=== PATIENT | female | born 1980 | race Two or more races ===

== ENCOUNTER 2017-07-04 12:54 | Outpatient (CLI) | payer OTHER ==
[~2017-07-04] VITALS: Ht 182.9 cm; Wt 101.6 kg
== END 2017-07-04 13:10 | disposition home or self-care (01) ==
LOC: OFIC 805 12:54
DX: J03.80 Acute tonsillitis due to other specified organisms (principal); M54.2 Cervicalgia

== ENCOUNTER 2017-07-04 16:40 | Outpatient (CLI) | payer OTHER | END 2017-07-04 16:42 | disposition home or self-care (01) | LOC: LAB 16:40 | DX: J03.90 Acute tonsillitis, unspecified (principal) ==

== ENCOUNTER 2018-12-17 07:42 | Emergency (ER) | payer OTHER ==
[~2018-12-17] VITALS: Ht 182.9 cm; Wt 102.1 kg
[2018-12-17] MEDS ORDERED: PERCOCET 10-321 EACH (07:52)
[2018-12-17] MEDS ORDERED: RELAPHEN (07:53)
[2018-12-17] MEDS ORDERED: ORPHENADRINE C100 MG PO (10:39)
[2018-12-17] MEDS ORDERED: NAPROXEN500 MG PO (10:39)
== END 2018-12-17 11:31 | disposition home or self-care (01) ==
LOC: ER 07:42
DX: M54.89 Other dorsalgia (principal)

== ENCOUNTER → 2022-06-16 | Emergency (ER) | payer OTHER ==
[~2022-06-16] VITALS: Ht 182.9 cm; Wt 101.6 kg
[~2022-06-16] MED LIST: NAPROXEN500 MG PO; ORPHENADRINE C100 MG PO; PERCOCET 10-321 EACH; RELAPHEN
== END | disposition home or self-care (01) ==
LOC: ER 07:47
DX: B01.9 Varicella without complication (principal); R50.9 Fever, unspecified; Z88.0 Allergy status to penicillin

== ENCOUNTER 2023-08-31 07:06 | Emergency (ER) | payer OTHER ==
[~2023-08-31] VITALS: Ht 182.9 cm; Wt 100.7 kg
[2023-08-31] MEDS ORDERED: DEXAMETHASONE SODIUM PHOSPHATE 4 MG/ML VIAL IM ONE (08:45)
[2023-08-31] MEDS ORDERED: ACETAMINOPHEN 500 MG GEL..CAP PO ONE (08:45)
[2023-08-31 09:09] LABS: HEMATOCRIT 44.8 % (39.0-48.0); HEMOGLOBIN 15.6 g/dL (13-16.00); MEAN CELL VOLUME 89.6 fL (80.0-100.00); MEAN CORPUSCULAR HEMOGLOBIN 31.2 pg (27.00-32.0); MEAN CORPUSCULAR HGB CONC 34.8 g/dl (32.0-36.0); PLATELET COUNT 181 K/uL (150-450); RED CELL DISTRIBUTION WIDTH 13.2 % (11.5-14.5)
== END 2023-08-31 10:51 | disposition home or self-care (01) ==
LOC: ER 07:06
PROVIDERS: General Practice
DX: J06.9 Acute upper respiratory infection, unspecified (principal); Z20.822 Contact with and (suspected) exposure to COVID-19; Z88.8 Allergy status to other drugs, medicaments and biological substances